=== PATIENT | male | born 1960 | race Caucasian/White ===

== ENCOUNTER 2020-09-14 18:42 | Emergency (ER) | payer OTHER, SELFPAY ==
--- NOTE | ~2020-09-14 | XR_ITS ---
EXAMINATION: XR chest 1V portable DATE: 09/14/2020 19:18 INDICATION: Shortness breath, cough and fever TECHNIQUE: frontal view of the chest was obtained. COMPARISON: None FINDINGS: The lungs are clear with no focal airspace opacities, pulmonary edema, pleural effusion or pneumothor ax. The cardiomediastinal silhouette is normal. Visualized bones and soft tissues are unremarkable. IMPRESSION: 1. No acute cardiopulmonary disease. Reviewed, dictated and finalized at location [facility]
--- NOTE | 2020-09-14 18:48 | ED.URI ---
HPI - URI/Sore Throat General Chief Complaint: Shortness of Breath/Dyspnea Stated Complaint: COVID symptoms Time Seen by Provider: 09/14/20 18:47 Source: patient Mode of arrival: ambulatory Limitations: no limitations History of Present Illness HPI Narrative: Patient is a 59-year-old gentleman with a history of colon cancer who presents for evaluation of fever, myalgias, cough and shortness of breath. Patient also with cramping abdominal pain and diarrhea. Patient's daughter and granddaughter tested positive for Covid last week, he was around them while they were symptomatic. Patient is reporting loss of sense of taste and smell. He denies manuel chest pain. He reports chest tightness. Patient does smoke. He denies history of blood clot. He denies rash. He has not had any Tylenol or ibuprofen today. He reports loss of appetite. Patient not currently undergoing any chemotherapy or active cancer treatment. Related Data Allergies Allergy/AdvReac Type Severity Reaction Status Date / Time No Known Allergies Allergy Verified 09/14/20 19:03 Review of Systems Review of Systems: Narrative: CONSTITUTIONAL: Reports fever, chills, sweats EYES: Denies visual changes, redness, or discharge. ENT: Reports rhinorrhea, congestion, loss of sense of taste and smell CARDIOVASCULAR: Denies chest pain, palpitations, or edema. RESPIRATORY: Reports cough and shortness of breath GASTROINTESTINAL: Denies abdominal pain, nausea, vomiting, or diarrhea. GENITOURINARY: Denies dysuria or hematuria. SKIN: Denies rash or itching. MUSCULOSKELETAL: Reports joint pain and myalgias NEUROLOGIC: Reports mild headache and feeling diffusely weak PMFSH Past Medical History Medical History Colon cancer Hypertension Prostate cancer Surgical History Surgical History H/O hemicolectomy Social History Social History (Updated 09/14/20 @ 19:10 by Ashleigh Estrella MD) Smoking status: Current every day smoker Tobacco type: cigarettes Substance use: never Gender identity (if verbalized by the patient): Male Exam Narrative: Exam Narrative: GENERAL: Awake, alert, conversant HEAD: Normocephalic, atraumatic. EYES: PERRLA and EOMI. ENT: Nares clear, no rhinorrhea or epistaxis. Mucous membranes moist. NECK: Supple. CHEST: No respiratory distress, breathing even and non labored, lungs are clear to auscultation bilaterally HEART: Regular rate, sinus rhythm, no murmur, no rubs or gallops ABDOMEN:Non distended, non tender EXTREMITIES: Normal range of motion. No edema. SKIN: Warm, dry, no rash. NEURO:No focal deficits. Alert and oriented x3 Course Vital Signs Vital signs: Vital Signs Temperature 38.4 C H 09/14/20 18:49 Pulse Rate 97 09/14/20 18:49 Respiratory Rate 24 H 09/14/20 18:49 Blood Pressure 164/110 H 09/14/20 18:49 Pulse Oximetry 100 09/14/20 18:49 Temperature 38.4 C H 09/14/20 18:49 Pulse Rate 97 09/14/20 20:44 Respiratory Rate 17 09/14/20 20:44 Blood Pressure 116/60 09/14/20 20:44 Pulse Oximetry 95 09/14/20 20:44 MDM - URI/Sore Throat MDM Narrative Medical decision making narrative: Patient evaluated for symptoms that seem consistent with viral infection such as Covid. Patient reporting recent sick Covid contacts and daughter and granddaughter, loss of sense of taste and smell, mild shortness of breath, dry cough, myalgias, fever and diarrhea. Patient denying any chest pain. No pleuritic pain. Patient is not hypoxic. Oxygen saturations are 100% on room air. Patient is tolerating oral intake. I advised symptomatic care, patient does not have any elevation in troponin, D-dimer, evidence of pneumonia or patchy infiltrates on chest x-ray. Pt denies urinary symptoms, thus UA not obtained. He was swabbed and his results will be called to his primary care physician. Patient was then discharged home, gi
[2020-09-14 18:49] VITALS: BP 164/110; PULSE 97; RESP 24; TEMP 38.4; O2SAT 100
[2020-09-14 18:50] VITALS: PULSE 97; RESP 20; O2SAT 99
--- NOTE | 2020-09-14 18:59 | ECG_ITS ---
Measurements Intervals [place] Rate: 95 P: 11 OR: 123 QRS: -39 QRSD: 105 T: 20 QT: 348 QTc: 438 Interpretive Statements SINUS RHYTHM LEFT AXIS DEVIATION DELAYED PRECORDIAL R/S TRANSITION BORDERLINE ECG Electronically Signed On 09-15-2020 8:45:23 [employer] by Constantino Hodges D.O.
[2020-09-14 19:02] VITALS: PULSE 84; O2SAT 98
[2020-09-14] MEDS: SODIUM CHLORIDE 0.9% IV 1,000 ML 999 ML IV CONT (19:28)
[2020-09-14] MEDS: MORPHINE SULFATE (*CRX) 4 MG/ML INJ 2 MG IV PUSH (19:28)
[2020-09-14 19:33] LABS: Basophils Percent Auto 0.3 % (0.2-1.2); Eosinophils Percent Auto 0.3 % (0-4.4); Hematocrit 52.9 % (42.0-52.0); Hemoglobin 17.9 g/dL (14.0-18.0); Immature Granulocyte Absolute 0.03 K/mm3 (0.00-0.031); Immature Granulocyte Percent A 0.4 % (0-0.5); Immature Platelet Fraction Pct 17.7 % (0.9-11.2); Lymphocytes Absolute Auto 0.85 K/mm3 (0.9-3.2); Lymphocytes Percent Auto 11.4 % (18.3-44.2); Mean Corpuscular HGB Conc 33.8 g/dl (32-36); Mean Corpuscular Hemoglobin 27.8 pg (26-34); Mean Platelet Volume 12.3 fl (7.4-10.4); Monocytes Absolute Auto 0.6 K/mm3 (0.1-0.6); Monocytes Percent Auto 7.5 % (2.6-8.5); Neutrophils Percent Auto 80.1 % (45.5-73.1); Platelet Count Result 122 k/mm3 (150-375); Red Blood Count 6.45 M/mm3 (4.6-6.20); Red Cell Distribution Width 13.9 % (11.5-14.5); White Blood Count 7.4 K/mm3 (4.5-10.0)
[2020-09-14 19:51] VITALS: BP 127/77; PULSE 89; RESP 19; O2SAT 100
[2020-09-14 20:02] LABS: INR 0.9; Prothrombin Time 12.8 Seconds (11.1-14.7)
[2020-09-14 20:03] LABS: Partial Thromboplastin Time 32.2 SECONDS (22.3-36.8)
[2020-09-14 20:05] LABS: D Dimer 0.29 ug/mL (<0.48)
[2020-09-14 20:14] LABS: Alanine Aminotransferase 28 U/L (4-50); Albumin Level 3.7 g/dL (3.5-5.1); Alkaline Phosphatase 58 U/L (38-126); Anion Gap 8 mmol/L (8-16); Aspartate Amino Transferase 31 U/L (17-59); Bilirubin,Total 0.5 mg/dL (0.2-1.3); Blood Urea Nitrogen 6 mg/dL (9-20); CRP 3.8 mg/dL (<1.0); Calcium 7.9 mg/dL (8.4-10.2); Carbon Dioxide 23 mmol/L (22-30); Chloride 104 mmol/L (98-107); Estimated Glomerular Filt Rate > 60; Glucose 112 mg/dL (75-110); Potassium 3.7 mmol/L (3.4-5.0); Sodium 135 mmol/L (137-145)
[2020-09-14 20:22] LABS: Troponin I < 0.012 ng/mL (0.000-0.034)
[2020-09-14 20:44] VITALS: BP 116/60; PULSE 97; RESP 17; O2SAT 95
[2020-09-16 17:05] LABS: SARS-CoV-2 RNA PCR Positive
== END 2020-09-14 20:47 | disposition home or self-care (01) ==
PROVIDERS: Emergency Provider Emergency Medicine; PCP Family Medicine
DX: U07.1 COVID-19 (principal); J06.9 Acute upper respiratory infection, unspecified; I10 Essential (primary) hypertension; Z85.038 Personal history of other malignant neoplasm of large intestine; Z85.46 Personal history of malignant neoplasm of prostate; Z90.49 Acquired absence of other specified parts of digestive tract; F17.210 Nicotine dependence, cigarettes, uncomplicated
CPT/HCPCS: 36415; 71045; 80053; 84484; 85025; 85055; 85380; 85610; 85730; 86140; 87635; 87804; 93005; 96361; 96365; 96375; 99284; C9803; J0131; J2270; J7030; U0003

== ENCOUNTER 2021-05-20 08:45 | Emergency (ER) | payer OTHER, SELFPAY ==
--- NOTE | ~2021-05-20 | CT_ITS ---
EXAMINATION: CT abdomen pelvis w con DATE: 05/20/2021 09:59 INDICATION: Abdominal pain TECHNIQUE: Computed tomography (CT) of the abdomen and pelvis was performed with 100 mL Omnipaque-350 intravenous contrast. Automated exposure control and iterative reconstruction technique were employe d. The dose-length product was 1276.74 mGy-cm. COMPARISON: None FINDINGS: Enema dependent atelectasis in the bilateral lower lobes. Heart size is normal. No pericardial or ple ural effusion. Cholecystectomy clips the gallbladder fossa. A few scattered small hepatic cysts the l argest measuring 1.7 cm along the gallbladder fossa. Spleen, pancreas, bilateral adrenal glands and k idneys are normal. Bowels including the appendix are normal. Reservoirs for penile implants are seen in the bilateral inguinal regions. Bilateral small fat-containing inguinal hernias. No free intraperi toneal gas or fluid. No pathologically enlarged abdominal or pelvic lymphadenopathy. Severe lower lum bar spondylosis. IMPRESSION: 1. No acute intra-abdominal/pelvic process. 2. Reservoirs for penile implants are seen at the bilateral inguinal regions along with small bilater al inguinal hernias. Reviewed, dictated and finalized at location [facility]. IMPRESSION: 1. No acute intra-abdominal/pelvic process. 2. Reservoirs for penile implants are seen at the bilateral inguinal regions al hesham with small bilateral inguinal hernias.
[2021-05-20 08:48] VITALS: BP 121/65; PULSE 77; RESP 20; TEMP 36.3; O2SAT 100
[2021-05-20 09:25] LABS: Basophils Percent Auto 0.5 % (0.2-1.2); Eosinophils Absolute Auto 0.3 K/mm3 (0-0.3); Eosinophils Percent Auto 4.6 % (0-4.4); Hematocrit 49.3 % (42.0-52.0); Hemoglobin 16.2 g/dL (14.0-18.0); Immature Granulocyte Absolute 0.03 K/mm3 (0.00-0.031); Immature Granulocyte Percent A 0.5 % (0-0.5); Lymphocytes Absolute Auto 1.75 K/mm3 (0.9-3.2); Lymphocytes Percent Auto 26.9 % (18.3-44.2); Mean Corpuscular HGB Conc 32.9 g/dl (32-36); Mean Corpuscular Volume 85.1 fl (80-100); Mean Platelet Volume 11.5 fl (7.4-10.4); Monocytes Absolute Auto 0.4 K/mm3 (0.1-0.6); Monocytes Percent Auto 6.3 % (2.6-8.5); Neutrophils Percent Auto 61.2 % (45.5-73.1); Platelet Count Result 191 k/mm3 (150-375); Red Blood Count 5.79 M/mm3 (4.6-6.20); Red Cell Distribution Width 12.3 % (11.5-14.5); White Blood Count 6.5 K/mm3 (4.5-10.0)
[2021-05-20 09:27] LABS: Add Urine Microscopic? NO; Appearance Urine Clear (Clear); Bilirubin Urine Negative (Negative); Blood Urine Negative (Negative); Color Urine Yellow (Yellow); Glucose Urine UA Negative (Negative); Ketones Urine Negative (Negative); Leukocyte Esterase Ur Negative LEU/UL (Negative); Nitrate Urine Negative (Negative); Protein Urine Negative (Negative); Specific Grav Ur 1.016 (1.001-1.035); Urobilinogen Urine Negative mg/dL (<2.0)
[2021-05-20 09:34] LABS: Alanine Aminotransferase 17 U/L (4-50); Alkaline Phosphatase 58 U/L (38-126); Anion Gap 6 mmol/L (8-16); Aspartate Amino Transferase 19 U/L (17-59); Bilirubin,Total 0.3 mg/dL (0.2-1.3); Blood Urea Nitrogen 11 mg/dL (9-20); Calcium 9.6 mg/dL (8.4-10.2); Carbon Dioxide 30 mmol/L (22-30); Chloride 103 mmol/L (98-107); Estimated CRCL calculation 104 ml/min; Estimated Glomerular Filt Rate > 60; Glucose 94 mg/dL (65-110); Potassium 4.1 mmol/L (3.4-5.0); Sodium 139 mmol/L (137-145)
[2021-05-20] MEDS: SODIUM CHLORIDE 0.9% IV 1,000 ML 999 ML IV CONT (10:37)
[2021-05-20 10:58] VITALS: BP 102/68; PULSE 59; RESP 18; O2SAT 100
--- NOTE | 2021-05-20 11:46 | ED.ABDPAIN ---
HPI - Abdominal Pain General Chief Complaint: Abdominal Pain Stated Complaint: BOIL IN GROIN Time Seen by Provider: 05/20/21 09:52 Source: patient, family and RN notes reviewed Limitations: no limitations History of Present Illness HPI narrative: Patient is 60 years old white male presented to the ED with pain, swelling left groin area started 2 days ago. Patient denies any fever, chills, nausea, vomiting, urinary symptoms or constipation. History of penile implants years ago. Related Data Home Medications Medication Instructions Recorded Confirmed amitriptyline 05/20/21 amlodipine 05/20/21 atorvastatin 20 mg PO HS 05/20/21 cholecalciferol (vitamin D3) 50 mcg PO DAILY 05/20/21 citalopram mg 05/20/21 trazodone 05/20/21 Allergies Allergy/AdvReac Type Severity Reaction Status Date / Time No Known Allergies Allergy Verified 05/20/21 09:04 Review of Systems Review of Systems: CONSTITUTIONAL: Denies fever, chills, or sweats. EYES: Denies visual changes, redness, or discharge. ENT: Denies rhinorrhea, congestion, sore throat, or otalgia. CARDIOVASCULAR: Denies chest pain, palpitations, or edema. RESPIRATORY: Denies cough or dyspnea. GASTROINTESTINAL: Denies abdominal pain, nausea, vomiting, or diarrhea. GENITOURINARY: Denies dysuria or hematuria. SKIN: Denies rash or itching. MUSCULOSKELETAL: Denies back pain, joint pain, or myalgia. NEUROLOGIC: Denies headache, numbness, or weakness. PSYCHIATRIC: Denies anxiety or depression. PMFSH Past Medical History Medical History Colon cancer Hypertension Prostate cancer Surgical History Surgical History H/O hemicolectomy Social History Social History Smoking status: Current every day smoker Tobacco type: cigarettes Substance use: never Gender identity (if verbalized by the patient): Male Exam Narrative: General appearance: Well-developed, well-nourished Skin: Normal color Head: Normocephalic, nontraumatic Eyes: Clear conjunctiva ENT: Oropharynx normal, ears normal, nose normal Neck: Supple, nontender Chest and respiratory: Airway patent, no respiratory distress, no accessory muscle use Heart: Regular rate/rhythm Abdomen: Soft, nontender, no organomegaly, quiet bowel sounds, 5 x 5 cm lump, slightly tender at the left lower abdomen, no erythema no open skin, no redness no discharge Vascular: Normal peripheral pulses, normal capillary refill. Musculoskeletal: Normal range of motion, nontender back Neurologic: Alert and oriented ?3, [employer] is normal as tested, no gross motor deficit Course Course Emergency Course: Stable Vital Signs Vital signs: Vital Signs Temperature 36.3 C L 05/20/21 08:48 Pulse Rate 77 05/20/21 08:48 Respiratory Rate 20 05/20/21 08:48 Blood Pressure 121/65 05/20/21 08:48 Pulse Oximetry 100 05/20/21 08:48 Temperature 36.3 C L 05/20/21 08:48 Pulse Rate 59 L 05/20/21 10:58 Respiratory Rate 18 05/20/21 10:58 Blood Pressure 102/68 05/20/21 10:58 Pulse Oximetry 100 05/20/21 10:58 MDM - Abdominal Pain Medical Records Medical records narrative: Incarcerated inguinal hernia versus penile implants reservoir displacement is my consideration. Labs, IV fluid, CT abdomen pelvis with IV contrast ordered. Lab Data Result diagrams: 05/20/21 09:12 05/20/21 09:12 Labs: Lab Results 05/20/21 05/20/21 05/20/21 Range/Units 09:12 09:12 09:12 WBC 6.5 (4.5-10.0) K/mm3 RBC 5.79 (4.6-6.20) M/mm3 Hgb 16.2 (14.0-18.0) g/dL Hct 49.3
[2021-05-20 12:04] VITALS: BP 113/78; PULSE 78; RESP 16; O2SAT 98
== END 2021-05-20 12:05 | disposition home or self-care (01) ==
PROVIDERS: Emergency Provider Emergency Medicine; PCP Family Medicine
DX: R10.32 Left lower quadrant pain (principal); Z96.0 Presence of urogenital implants; I10 Essential (primary) hypertension; Z85.46 Personal history of malignant neoplasm of prostate; Z85.038 Personal history of other malignant neoplasm of large intestine; Z90.49 Acquired absence of other specified parts of digestive tract; F17.210 Nicotine dependence, cigarettes, uncomplicated
CPT/HCPCS: 36415; 74177; 80053; 81003; 85025; 96360; 99284; J7030; Q9967